=== PATIENT | female | born 1985 | race African-American/Black ===

== ENCOUNTER 2020-02-08 19:51 | Observation (INO) ==
[2020-02-08] MEDS ORDERED: FOSPHENYTOIN 1,000 MG.PE in SODIUM CHLORIDE 0.9% 250 ML IV STA (20:35)
[2020-02-08] MEDS ORDERED: FOSPHENYTOIN 500 MG.PE/10 ML VIAL ONE (20:38)
[2020-02-08] MEDS ORDERED: ONDANSETRON 4 MG/2 ML VIAL IV PRN (22:16)
[2020-02-08] MEDS ORDERED: NICOTINE 21 MG/24 HR PATCH TRANSDERM PRN (22:16)
[2020-02-08] MEDS ORDERED: hydrALAZINE 20 MG/1 ML VIAL IV PRN (22:16)
[2020-02-08] MEDS ORDERED: GLUCAGON 1 MG VIAL IM PRN (22:27)
[2020-02-08] MEDS ORDERED: DEXTROSE 50% 25 GM/50 ML VIAL IV PRN (22:27)
[2020-02-08] MEDS ORDERED: levETIRAcetam 500 MG/5 ML VIAL IV ONE (22:27)
[2020-02-08 23:28] LABS: Barbiturates Screen,Urine Negative (Negative); Benzodiazepines Screen,Urine Positive (Negative); Cannabinoid Screen,Urine Negative (Negative); Opiate Screen,Urine Negative (Negative); Phencyclidine Screen,Urine Negative (Negative)
[2020-02-09] MEDS: ACETAMINOPHEN 325 MG TABLET PO PRN ×2 (00:05→08:25)
[2020-02-09] MEDS ORDERED: LORazepam 2 MG/1 ML VIAL IV PRN (00:12)
[2020-02-09] MEDS ORDERED: MAGNESIUM CHLORIDE 64 MG TABLET PO SCH (09:00)
[2020-02-09] MEDS ORDERED: FERROUS SULFATE 325 MG TABLET PO SCH (09:00)
[2020-02-09] MEDS ORDERED: cefTRIAXone 1,000 MG in SYRINGE 1 EACH IV SCH (10:00)
[2020-02-09] MEDS: INSULIN REGULAR 100 UNIT/ML SUBCUT SCH ×3 (11:07→16:54)
[2020-02-09 16:06] VITALS: BP 118/62
[2020-02-09] MEDS ORDERED: KETOROLAC 30 MG/1 ML VIAL IM ONE (16:29)
== END 2020-02-09 19:00 | disposition home or self-care (01) ==
LOC: EDBD → EDUNIT# → N.ED 19:51 → N.EDINP 19:51 → N.2W 22:42
PROVIDERS: ADMIT Internal Medicine; ATTEND Internal Medicine